=== PATIENT | female | born 1985 | race Caucasian/White ===

== ENCOUNTER 2018-03-14 11:24 | Observation (INO) ==
[2018-03-14 12:16] LABS: Basophils % 0.1 %; Eosinophils # 0.1 K/mcL (0.0-0.6); Hematocrit 33.1 % (35.3-44.9); Hemoglobin 9.4 g/dL (11.5-15.4); Immature Granulocytes % 1.1 % (0-4); Lymphocytes # 1.7 K/mcL (0.6-4.6); Mean Corpuscular HGB Conc 28.4 g/dL (31.6-35.5); Mean Corpuscular Hemoglobin 23.2 pg (28.0-33.3); Mean Corpuscular Volume 81.5 fL (83.0-100.0); Mean Platelet Volume 11.2 fL (9.4-12.4); Monocytes # 0.6 K/mcL (0.0-1.3); Monocytes % 6.5 %; Neutrophils # 6.8 K/mcL (1.6-8.9); Nucleated Red Blood Cells 1.6 /100 WBC (0); Platelet Count 138 K/mcL (140-400); Red Blood Count 4.06 M/mcL (3.82-4.97); Red Cell Distribution Width 19.9 % (11.5-14.5); Segmented Neutrophils % 73.3 %
[2018-03-14 12:17] LABS: Anisocytosis 1+ (Not Present); Hypochromasia Present (Not Present); Platelet Estimate Normal (Normal)
[2018-03-14 12:38] LABS: Alanine Aminotransferase 17 Units/L (7-52); Aspartate Amino Transferase 25 Units/L (13-39); BUN/Creatinine Ratio 11 (6-26); Blood Urea Nitrogen 5 mg/dL (6-20); Lactate Dehydrogenase 192 Units/L (140-271); Uric Acid 5.3 mg/dL (2.3-7.6); eGFR For Non-African Americans > 60 (> 60)
[2018-03-14 13:13] LABS: Amphetamine Screen,Urine Negative ng/mL (Cutoff=1000); Barbiturate Screen,Urine Negative ng/mL (Cutoff=200); Benzodiazepines Screen,Urine Negative ng/mL (Cutoff=200); Cannabinoid Screen,Urine Negative ng/mL (Cutoff = 50); Cocaine Screen,Urine Negative ng/mL (Cutoff= 300); Creatinine,Urine 38 mg/dL; Opiate Screen,Urine Negative ng/mL (Cutoff=300); Phencyclidine Screen,Urine Negative ng/mL (Cutoff=25); Protein/Creatinine Ratio,Urine 0.13 mg/mg (0.00-0.20)
--- NOTE | 2018-03-14 13:26 | Discharge Summary ---
Date of Encounter: 03/14/18 - Discharge Medications Home Medications: Ferrous Sulfate 324 mg PO DAILY 08/31/15 [History] Vit Calc,Iron,Folic [ Vitamins] 1 tab PO DAILY 08/31/15 [ History] Vitamin C 1 tab PO DAILY 03/14/18 [History] Allergies/Adverse Reactions: 3 Allergy/AdvReac Type Severity Reaction Status Date / Time No Known Allergies Allergy Verified 08/31/15 12:59 Data Procedures and tests throughout hospitalization: Laboratory Tests 03/14/18 03/14/18 03/14/18 11:36 11:37 11:37 WBC 9.3 RBC 4.06 Hgb 9.4 L Hct 33.1 L MCV 81.5 L MCH 23.2 L MCHC 28.4 L RDW 19.9 H Plt Count 138 L MPV 11.2 Immature Gran % 1.1 Seg Neutrophils % 73.3 Lymphocytes % 18.0 Monocytes % 6.5 Eosinophils % 1.0 Basophils % 0.1 Neutrophils # 6.8 Lymphocytes # 1.7 Monocytes # 0.6 Eosinophils # 0.1 Basophils # 0.0 Nucleated RBCs/100 WBC 1.6 H Platelet Estimate Normal Hypochromasia Present A Anisocytosis 1+ A BUN 5 L Creatinine 0.44 L Est GFR ( Amer) > 60 Est GFR (Non-Af Amer) > 60 BUN/Creatinine Ratio 11 Uric Acid 5.3 AST 25 ALT 17 Lactate Dehydrogenase 192 Urine Creatinine 38 Protein/Creatinin Ratio 0.13 Urine Total Protein 5 Urine Opiates Screen Negative Ur Barbiturates Screen Negative Ur Phencyclidine Scrn Negative Ur Amphetamines Screen Negative U Benzodiazepines Scrn Negative Urine Cocaine Screen Negative U Marijuana (THC) Screen Negative Ur Drug Screen Interp See Below Labs on day of discharge: Labs from last 24 hours 03/14/18 03/14/18 03/14/18 11:37 11:37 11:36 WBC 9.3 RBC 4.06 Hgb 9.4 L Hct 33.1 L MCV 81.5 L MCH 23.2 L MCHC 28.4 L RDW 19.9 H Plt Count 138 L MPV 11.2 Immature Gran % 1.1 Seg Neutrophils % 73.3 Lymphocytes % 18.0 Monocytes % 6.5 Eosinophils % 1.0 Basophils % 0.1 Neutrophils # 6.8 Lymphocytes # 1.7 Monocytes # 0.6 Eosinophils # 0.1 Basophils # 0.0 Nucleated RBCs/100 WBC 1.6 H Platelet Estimate Normal Hypochromasia Present A Anisocytosis 1+ A BUN 5 L Creatinine 0.44 L Est GFR ( Amer) > 60 Est GFR (Non-Af Amer) > 60 BUN/Creatinine Ratio 11 Uric Acid 5.3 AST 25 ALT 17 Lactate Dehydrogenase 192 Urine Creatinine 38 Protein/Creatinin Ratio 0.13 Urine Total Protein 5 Urine Opiates Screen Negative Ur Barbiturates Screen Negative Ur Phencyclidine Scrn Negative Ur Amphetamines Screen Negative U Benzodiazepines Scrn Negative Urine Cocaine Screen Negative U Marijuana (THC) Screen Negative Ur Drug Screen Interp See Below Date of admission: 03/14/18 11:22 Primary care physician: Seth Ascencio MD - Discharge Instructions Follow Up With: Seth Ascencio MD [Primary Care Provider] - Hospital Course [employer] Time Attestation: Total time spent providing and/or coordinating discharge services: Exam - Constitutional Vitals: 110s/60s Nontachycardic VSS, HDS General appearance IM: A&O X 0 Exam: General appearance: No diffuse swelling appreciated Abdomen: soft, nonTTP, no RUQP Extremities: Upper and lower extremities without significant edema - VTE Reasons for not Prescribing Prophylaxis: Treatment not Indicated - Low risk for VTE
--- NOTE | 2018-03-14 13:29 | OB/GYN History & Physical ---
Date of Encounter: 03/14/18 Time of Encounter: 13:30 Assessment and Plan (1) Preeclampsia Current visit: Yes Status: Acute 32yo at 36+0wks GA who presents for r/o PReE, patient was ruled out 1. R/o PReE - normotensive on serial BPs - denies si/sx of PReE including: HELTON/CP/SOB/blurry vision/RUQP - PReE labs ordered: KRYSTEN, UPC 0.13 - discussed si/sx of PreE, patient does not meet criteria for gHTN - will have patient f/u with Dr. Giles as scheduled Monday, 03/19 2. Concern for gestational thrombocytopenia - PLT 138 today, would recommend repeat on Monday to follow trend - recommendation for patient to continue ferrous sulfate TID with Hgb 9.3 toda - plan to repeat CBC at next PNV 3. FWB - reports good FM - RNST for GA - S = D 4. MWB - normotensive - VSS, HDS - UTD PNC with Dr. Giles DIspo: Patient discharged to home with PreE precaution(S). GIven PTL precaution(s). Scheduled to see Dr. Giles on Monday, March 19 for ROB. VIVEK MD Qualifiers: Trimester: third trimester Qualified Code(s): O14.93 - Unspecified pre- eclampsia, third trimester History of Present Illness Chief complaint: R/o PreE HPI: Ms. Cabello is a 32 year old female at 36+0wks GA who presents from office for r/o PReE. Denies HELTON/CP/SOB. Elevated BPs in office, increased swelling in lower extremities. Otherwise patient has had an uncomplicated . Reports excellent movement. Denies VB/LOF/contraction(s). Hx of one prior pLTCS at term. Past Med Surg Social Fam HX - Past Medical History Medical history: no medical history Psychiatric history: no psych history - Past Surgical History Surgical History: , other Additional surgical history: foot surgery, in 2016 - Social History Smoking Status: Never smoker Smokeless Tobacco Status: No Alcohol use: none Drug use: none - Family History Mother Adopted: No Living Status: Still Living Hx Family Cardiac Disorders: Yes (hypertension) Hx Family Respiratory Disorders: No Hx Family Cancer: No Hx Family GI Disorders: No Hx Family Endocrine Disorder: No Hx Family Neuromuscular Disorders: No Hx Family Neurologic Disorders: No Hx Family HEENT Disorders: No Hx Family Autoimmune Disorders: No Obstetrical History - Pregnancies : 2 Medications and Allergies Ferrous Sulfate 324 mg PO DAILY 08/31/15 [History] Vit Calc,Iron,Folic [ Vitamins] 1 tab PO DAILY 08/31/15 [ History] Vitamin C 1 tab PO DAILY 03/14/18 [History] 3 Allergy/AdvReac Type Severity Reaction Status Date / Time No Known Allergies Allergy Verified 08/31/15 12:59 Review of System OB - Constitutional Constitutional ROS IM: as per HPI - Gastrointestinal Gastrointestinal: as per HPI - Genitourinary Genitourinary: as per HPI Exam - Vital Signs Vital signs: 110s/60s Normotensive, HDS Afebrile, VSS - Constitutional Constitutional: well developed - Abdomen Abdomen: Present: bowel sounds normal, gravid, non tender - Extremities Extremities exam: radial pulses palpable and symmetrical Deep Tendon Reflex Grade: 2+ Normal Results Result Diagrams: 03/14/18 11:37 03/14/18 11:37 Abnormal lab results Hgb 9.4 g/dL (11.5-15.4) L 03/14/18 11:37 Hct 33.1 % (35.3-44.9) L 03/14/18 11:37 MCV 81.5 fL (83.0-100.0) L 03/14/18 11:37 MCH 23.2 pg (28.0-33.3) L 03/14/18 11:37 MCHC 28.4 g/dL (31.6-35.5) L 03/14/18 11:37 RDW 19.9 % (11.5-14.5) H 03/14/18 11:37 Plt Count 138 K/mcL (140-400) L 03/14/18 11:37 Nucleated RBCs/100 WBC 1.6 /100 WBC (0) H 03/14/18 11:37 Hypochromasia Present (Not Present) A 03/14/18 11:37 Anisocytosis 1+ (Not Present) A 03/14/18 11:37 BUN 5 mg/dL (6-20) L 03/14/18 11:37 Creatinine 0.44 mg/dL (0.60-1.20) L 03/14/18 11:37 All other labs normal. - VTE Reasons for not Prescribing Prophylaxis: Treatment not Indicated - Low risk for VTE
== END 2018-03-14 13:36 | disposition home or self-care (01) ==
LOC: 1NENULAB
PROVIDERS: ADMIT Registered Nurse; ATTEND Registered Nurse

== ENCOUNTER 2018-04-06 06:07 | Inpatient (IN) ==
[2018-04-06] MEDS ORDERED: Ringers Solution, Lactated 1,000 ML ONE ×2 (06:08→20:45)
[2018-04-06] MEDS ORDERED: Famotidine 20 MG/2 ML VIAL IVP ONE (06:16)
[2018-04-06] MEDS ORDERED: CeFAZolin Syr 3,000MG/30 ML 3,000 MG/30 ML SYRINGE IVPB ONE (06:16)
[2018-04-06] MEDS ORDERED: Ringers Solution, Lactated 1,000 ML IVC ONE (06:16)
[2018-04-06] MEDS ORDERED: Metoclopramide 10 MG/2 ML VIAL IVP ONE (06:16)
[2018-04-06 06:49] LABS: Nucleated Red Blood Cells 1.6 /100 WBC (0); Segmented Neutrophils % 69.7 %
[2018-04-06 06:50] LABS: Basophils % 0.2 %; Eosinophils # 0.1 K/mcL (0.0-0.6); Eosinophils % 0.7 %; Hematocrit 33.8 % (35.3-44.9); Hemoglobin 9.8 g/dL (11.5-15.4); Immature Granulocytes % 0.9 % (0-4); Lymphocytes # 2.3 K/mcL (0.6-4.6); Lymphocytes % 22.5 %; Mean Corpuscular Hemoglobin 23.3 pg (28.0-33.3); Mean Corpuscular Volume 80.5 fL (83.0-100.0); Monocytes # 0.6 K/mcL (0.0-1.3); Platelet Count 152 K/mcL (140-400); Red Cell Distribution Width 21.4 % (11.5-14.5)
[2018-04-06 07:11] LABS: Anisocytosis 1+ (Not Present); Hypochromasia Present (Not Present); Platelet Estimate Normal (Normal)
[2018-04-06] MEDS ORDERED: *HR* Morphine Sulfate/PF 10 MG/10 ML AMPUL ONE (07:14)
[2018-04-06] MEDS ORDERED: *HR* FentaNYL (PF) 100 MCG/2 ML VIAL ONE (07:14)
--- NOTE | 2018-04-06 07:30 | Anesthesia Evaluation PreOp ---
Date of Encounter: 04/06/18 Time of Encounter: 07:28 - Past History Planned Operation: c section Cardiac History: Denies any Significant Hx Pulmonary History: Denies Any Significant HX HAND SHAKER History: Denies Any Significant HX Other Medical History: GERD Anesthesia History: Past Anesthesia (c/s) : Yes Test: Positive Alcohol Use: none Drug use: none Medications and Allergies Ferrous Sulfate 324 mg PO BID 08/31/15 [History] Vit Calc,Iron,Folic [ Vitamins] 1 tab PO DAILY 08/31/15 [History] Ascorbic Acid [Vitamin C] 500 mg PO DAILY 03/16/18 [History] Allergy/AdvReac Type Severity Reaction Status Date / Time No Known Allergies Allergy Verified 04/06/18 06:11 - Meds/Allergy Pre-op Review Medications Reviewed: Yes Allergies Reviewed: Yes Beta Blockers on Current Med List: No Anesthesia Results - Labs 04/06/18 06:16 Anesthesia Exam see nsg note Height: 1.6 Weight: 110 NPO (# of Hours): 8 Pain Scale: 2 Pain Scale Used: Numeric (1 - 10) - HEENT Pupil (Motor): Pupils equal Mallampati: II Teeth: Normal Oral Opening: Greater than 3 - HAND SHAKER LOC: Oriented HAND SHAKER Motor: Normal RUE, Normal LUE, Normal RLE, Normal LLE, Normal Face HAND SHAKER Sensory: Normal: RUE, LUE, RLE, LLE, Face - Cardiac Rhythm: Regular Murmur: None - Pulmonary Breath Sounds: bilateral Clear Respiratory Effort: Symmetrical Anesthesia Assess/Plan ASA Score: 2 Level of consciousness: Cooperative Anesthetic Plan: Spinal Monitoring Plan: Standard Monitors Recovery Plan: PACU (risks discussed questions answered, consented)
[2018-04-06 07:32] LABS: Alanine Aminotransferase 15 Units/L (7-52); Aspartate Amino Transferase 29 Units/L (13-39); BUN/Creatinine Ratio 12 (6-26); Blood Urea Nitrogen 6 mg/dL (6-20); Lactate Dehydrogenase 199 Units/L (140-271); Uric Acid 6.5 mg/dL (2.3-7.6); eGFR For Non-African Americans > 60 (> 60)
[2018-04-06 07:32] LABS: Amphetamine Screen,Urine Negative ng/mL (Cutoff=1000); Barbiturate Screen,Urine Negative ng/mL (Cutoff=200); Benzodiazepines Screen,Urine Negative ng/mL (Cutoff=300); Cannabinoid Screen,Urine Negative ng/mL (Cutoff = 50); Cocaine Screen,Urine Negative ng/mL (Cutoff= 300); Opiate Screen,Urine Negative ng/mL (Cutoff=300); Phencyclidine Screen,Urine Negative ng/mL (Cutoff=25)
--- NOTE | 2018-04-06 07:45 | OB/GYN History & Physical ---
Date of Encounter: 04/06/18 Time of Encounter: 07:46 Assessment and Plan (1) 39 weeks gestation of Current visit: Yes Status: Chronic (2) Previous section Current visit: Yes Status: Chronic (3) Benign gestational thrombocytopenia Current visit: No Status: Chronic Qualifiers: Trimester: third trimester Qualified Code(s): O99.113 - Other diseases of the blood and blood-forming organs and certain disorders involving the immune mechanism complicating , third trimester; D69.6 - Thrombocytopenia, unspecified (4) Anemia Current visit: Yes Status: Chronic Qualifiers: Anemia type: iron deficiency Iron deficiency anemia type: other iron deficiency Qualified Code(s): D50.8 - Other iron deficiency anemias History of Present Illness HPI: Ms. Cabello is a 32 year old female Patient is a 32-year-old 2 para 1 white female who is admitted for section. She has history of previous section she desires tubal sterilization. She has history of anemia has been evaluated during the . She denies contractions, spontaneous rupture membranes, and reports good movement. Past Med Surg Social Fam HX - Past Medical History Medical history: no medical history Psychiatric history: no psych history - Past Surgical History Surgical History: , other (Anemia) Additional surgical history: foot surgery, in 2016 - Social History Smoking Status: Never smoker Smokeless Tobacco Status: No Alcohol use: none Drug use: none - Family History Mother Adopted: No Family Member Ethnicity: Non- Living Status: Still Living Hx Family Cardiac Disorders: Yes (hyperlipidemia, hypertension) Hx Family Respiratory Disorders: No Hx Family Cancer: No Hx Family GI Disorders: No Hx Family Genitourinary Disorders: No Hx Family Endocrine Disorder: No Hx Family Musculoskeletal Disorders: No Hx Family Neuromuscular Disorders: No Hx Family Neurologic Disorders: No Hx Family HEENT Disorders: No Hx Family Autoimmune Disorders: No Hx Family Reproductive Disorders: No Hx Family Psychosocial Disorders: No Hx Family Medical Disorders: No Obstetrical History - Pregnancies : 2 Medications and Allergies Ferrous Sulfate 324 mg PO BID 08/31/15 [History] Vit Calc,Iron,Folic [ Vitamins] 1 tab PO DAILY 08/31/15 [History] Ascorbic Acid [Vitamin C] 500 mg PO DAILY 03/16/18 [History] Allergy/AdvReac Type Severity Reaction Status Date / Time No Known Allergies Allergy Verified 04/06/18 06:11 Review of System OB All systems PM: reviewed and no additional remarkable complaints except as stated - Genitourinary Genitourinary: amenorrhea - Menstruation Menstruation: amenorrhea Exam - Constitutional Constitutional: well developed, well nourished, no acute distress - HEENT HEENT: Normocephaly - Neck Neck exam: full ROM - Lungs Respiratory exam: CTAB - Cardiovascular Cardiovascular exam: RRR - Abdomen Abdomen: Present: gravid, non tender - Extremities Extremities exam: full ROM Deep Tendon Reflex Grade: 2+ Normal - Uterus Uterus exam: Present: enlarged Results Result Diagrams: 04/06/18 06:16 04/06/18 06:32 Abnormal lab results Hgb 9.8 g/dL (11.5-15.4) L 04/06/18 06:16 Hct 33.8 % (35.3-44.9) L 04/06/18 06:16 MCV 80.5 fL (83.0-100.0) L 04/06/18 06:16 MCH 23.3 pg (28.0-33.3) L 04/06/18 06:16 MCHC 29.0 g/dL (31.6-35.5) L 04/06/18 06:16 RDW 21.4 % (11.5-14.5) H 04/06/18 06:16 Nucleated RBCs/100 WBC 1.6 /100 WBC (0) H 04/06/18 06:16 Hypochromasia Present (Not Present) A 04/06/18 06:16 Anisocytosis 1+ (Not Present) A 04/06/18 06:16 Creatinine 0.52 mg/dL (0.60-1.20) L 04/06/18 06:32 All other labs normal. - Attending Attestation irma iglesias md facog
[2018-04-06] MEDS ORDERED: *HR* FentaNYL (PF) 100 MCG/2 ML VIAL IVP PRN (07:48)
[2018-04-06] MEDS ORDERED: *HR* OxyCODONE Immed Rel 5 MG TABLET PO PRN (07:48)
[2018-04-06] MEDS ORDERED: Acetaminophen IV 1,000 MG/100 ML INFUS..BTL IVPB ONE (07:48)
[2018-04-06] MEDS ORDERED: Ondansetron 4 MG/2 ML VIAL IVP PRN ×2 (07:48→11:48)
[2018-04-06] MEDS ORDERED: *HR* Meperidine 50 MG/ML SYRINGE IVP PRN (07:48)
--- NOTE | 2018-04-06 08:27 | Anesthesia Procedures ---
Date of Encounter: 04/06/18 Time of Encounter: 08:25 Procedures: Anesthesia - Epidural/Spinal Patient ID/Chart reviewed: Yes Patient examined: Yes OB Eval: Gestational age: 39 OB Eval: : 2 OB Eval: Hx Para: 1 OB Eval: Dilated at (cm): 2 OB Eval: Contractions: Non-stressed pattern Consent Obtained: Yes Supplemental Oxygen: Nasal Cannula Supplemental Oxygen Rate (L/min): 3 Site Prep: Aseptic Technique, Sterile prep and drape, 0.5% Chlorhexidine/Alcohol Patient position: upright Local Anesthetic: Lidocaine 1% Amount of Local Anesthetic used: 3 Interspace Used: L2-L3 Loss of Resistance (JAIRO): No Blood: No CSF: Yes Paresthesia: No Spinal Needle Gauge: 25 Spinal Dose: marcaine 12mg duramorph 2, fentanyl 10 mcg Procedure: eptic, isaias well, csf x4 quads, effective Vitals + FHT's: 100/78 65 16 fht 125
[2018-04-06] MEDS ORDERED: Lidocaine -MPF 2% 5 ML VIAL ONE (08:39)
[2018-04-06] MEDS ORDERED: Ketorolac 30 MG/ML VIAL ONE (08:39)
[2018-04-06] MEDS ORDERED: *HR* Oxytocin 10 UNIT/ML VIAL IM ONE (08:39)
[2018-04-06] MEDS ORDERED: *HR* Phenylephrine 10 MG/ML VIAL ONE (08:39)
[2018-04-06] MEDS ORDERED: Oxytocin 20 units/ LR 1000 mL 20 UNIT/1,000 ML BAG IVC ONE (09:43)
--- NOTE | 2018-04-06 09:46 | OB/GYN Procedure Note ---
Section - Date of procedure: 04/06/18 Preop diagnosis: desires repeat , desires sterilization Post-op diagnosis: same Procedure: repeat low transverse, bilateral tubal ligation Surgeon: Edinson Patricia Blood Loss: 300 Was there an assistant maintenance manager present: No Anesthesiologist: Roddy Sykes Anesthesia Type: Spinal section complications: none Disposition: PACU Specimens: Placenta, Right tube segment, Left tube segment - (s) Infant A Delivery Date: 04/06/18 Delivery Time: 08:32 Presentation: vertex Position: ANGUS Gender: Male Viability: Viable Pounds: 6 Ounces: 11 at 1 minute: 8 at 5 minutes: 9 Specimens collected: cord blood Placenta: complete extraction Cord: nuchal cord, nuchal reduced - Narrative Narrative: Patient was taken to the operating room. After satisfactory anesthesia was achieved patient placed in supine position Mac catheter inserted and prepped and draped in usual manner. After appropriate timeout was obtained, abdomen was entered through standard Maylard incision. The Bette retractor was placed. Peritoneum overlying the lower uterine segment was incised in U-shaped fashion. Uterine cavity was entered sharply extended laterally. Fluid was clear. With fundal pressure the infant was delivered. Infant suctioned on deliver the head. Nuchal cord was relieved head delivered the head. The umbilical cord was doubly clamped and cut and the was handed to nursery staff for further evaluation. Placenta was removed. Uterus closed with 0 Monocryl in a single layer. Attention then turned to the tubal. The fallopian tubes were bilaterally resected and sent to pathology for analysis. Pedicles were ligated using 2-0 chromic. After she inserts of hemostasis, the abdomen was closed standard fashion using 0 PDS on the fascia and 3-0 Monocryl in the skin. Sterile dressing was applied. Patient did well was taken to recovery in satisfactory condition. Counts were correct.
[2018-04-06] MEDS ORDERED: *HR* OxyCODONE/APAP 5/325 TABLET PO PRN (11:48)
[2018-04-06] MEDS ORDERED: Sennosides 8.6 MG TABLET PO PRN (11:48)
[2018-04-06] MEDS ORDERED: Metoclopramide 10 MG/2 ML VIAL IVP PRN (11:48)
[2018-04-06] MEDS ORDERED: Simethicone 80 MG TAB.CHEW PO PRN (11:48)
[2018-04-06] MEDS ORDERED: Rho Immune Globulin 1,500 UNIT SYRINGE IM ONE (11:48)
[2018-04-06] MEDS ORDERED: Oxytocin 20 units/ LR 1000 mL 20 UNIT/1,000 ML BAG IVC SCH (11:48)
--- NOTE | 2018-04-06 12:31 | Anesthesia Evaluation Post Op ---
Date of Encounter: 04/06/18 Time of Encounter: 12:30 - Vital Signs Vital Signs: Vital Signs/O2 Sat, Most Current Temp Pulse Resp BP Pulse Ox 98 F 63 16 118/61 96 04/06/18 12:00 04/06/18 12:00 04/06/18 12:00 04/06/18 12:00 04/06/18 12:00 - Lungs Lungs: Clear Ascult./Percussion - Airway Airway: Non-obstructed - Cardiovascular Regular Rate - Mental Status Mental Status: Alert & Oriented, Answers Appropriately - Pain Pain Scale: 2 Pain Scale used: Numeric (1 - 10) - Nausea Vomiting Nausea Vomiting: Not Present - Hydration Hydration: NPO Notes: 04/06/18 12:30 itching - Discharge PostOp Status: Transfer Patient to floor (awake, alert, no pain, VSS, no anesthetic complications)
[2018-04-06] MEDS: Ibuprofen 600 MG TABLET PO PRN (21:01)
[2018-04-07] MEDS: Ibuprofen 600 MG TABLET PO PRN ×3 (05:18→19:11)
[2018-04-07 07:09] LABS: Basophils % 0.4 %; Eosinophils % 0.4 %; Hematocrit 33.2 % (35.3-44.9); Hemoglobin 9.6 g/dL (11.5-15.4); Immature Granulocytes % 0.7 % (0-4); Immature Platelets 9.3 % (1.1-6.1); Lymphocytes # 1.6 K/mcL (0.6-4.6); Lymphocytes % 16.3 %; Mean Corpuscular HGB Conc 28.9 g/dL (31.6-35.5); Mean Corpuscular Hemoglobin 23.6 pg (28.0-33.3); Mean Corpuscular Volume 81.8 fL (83.0-100.0); Mean Platelet Volume 11.6 fL (9.4-12.4); Monocytes # 0.5 K/mcL (0.0-1.3); Monocytes % 5.3 %; Platelet Count 158 K/mcL (140-400); Red Blood Count 4.06 M/mcL (3.82-4.97); Red Cell Distribution Width 21.9 % (11.5-14.5); Segmented Neutrophils % 76.9 %
[2018-04-07 07:11] LABS: Neutrophils # 7.4 K/mcL (1.6-8.9)
[2018-04-07] MEDS: Prenatal Vit/FA 1 EACH TABLET PO SCH (07:43)
[2018-04-07] MEDS: Ascorbic Acid 500 MG TABLET PO SCH (07:43)
[2018-04-07] MEDS ORDERED: NON-FORMULARY MEDICATION 1 EACH EACH (Prenatal Vit Calc,Iron,Folic [Prenatal Vitamins] 1 T PO SCH (09:00)
--- NOTE | 2018-04-07 12:26 | OB/GYN Progress Note ---
Date of Encounter: 04/07/18 Time of Encounter: 12:23 - Assessment and Plan (1) anemia Current Visit: Yes Status: Acute Continue iron as scheduled. Patient is asymptomatic vitals are stable. Plan to send home on iron when discharged. (2) Status post section Current Visit: No Status: Acute Meeting day 1 milestones. Patient emulating in room without difficulty. Pa ssing flatus, tolerating regular diet. Anticipate discharge home tomorrow. Subjective - Subjective Principal diagnosis: Status post section Interval history: Patient is doing well today. She is up emulating in the room. States her pain is well-controlled with Motrin. She has not requested Percocet at this time but patient was encouraged to use that if needed. She is voiding normally has not had a bowel movement, is tolerating regular diet. Patient reports: appetite normal, voiding normally, pain well controlled, ambulating normally : doing well, bottle feeding Objective - Vital Signs Latest vital signs: Vital Signs Temp Pulse Resp BP Pulse Ox 04/07/18 07:47 98.1 F 88 16 124/78 95 04/07/18 05:51 98.5 F 79 16 114/76 97 04/07/18 00:33 98.3 F 63 16 106/56 96 04/06/18 21:00 98.1 F 69 16 112/63 95 04/06/18 15:05 16 04/06/18 15:00 98.1 F 62 16 106/42 98 04/06/18 14:00 97.8 F 56 16 115/57 98 04/06/18 13:00 97.9 F 70 16 114/56 96 04/06/18 12:35 97.9 F 88 16 132/62 98 04/06/18 12:30 97.9 F 88 16 132/62 98 Intake and Output 04/06/18 04/07/18 04/07/18 23:59 07:59 15:59 Intake Total 360 / 360 300 / 300 360 / 360 Output Total 750 / 750 2200 / 2200 300 / 300 Balance -390 / -390 -1900 / -1900 60 / 60 Intake: Oral 360 / 360 300 / 300 360 / 360 Output: Urine 1000 / 1000 300 / 300 Catheter 750 / 750 1200 / 1200 Other: Meal Dinner Breakfast Percent of Meal Consumed 50% 100% Stool Characteristics Normal for Patient Weight 108.272 kg Patient Weight 04/07/18 23:59 Weight 108.272 kg - Exam Lungs: bilateral: normal Chest: Normal S1, Normal S2 Extremities: Present: normal Abdomen: Present: normal appearance, soft Incision: Present: dressed (RADHA dressing) Uterus: Present: normal, firm Fundal Height: 0 (@u) - Labs Labs: Laboratory Results - last 24 hr 04/07/18 07:00 WBC 9.6 RBC 4.06 Hgb 9.6 L Hct 33.2 L MCV 81.8 L MCH 23.6 L MCHC 28.9 L RDW 21.9 H Plt Count 158 MPV 11.6 Immature Gran % 0.7 Seg Neutrophils % 76.9 Lymphocytes % 16.3 Monocytes % 5.3 Eosinophils % 0.4 Basophils % 0.4 Neutrophils # 7.4 Lymphocytes # 1.6 Monocytes # 0.5 Eosinophils # 0.0 Basophils # 0.0 Nucleated RBCs/100 WBC 1.0 H Immature Plt Fraction 9.3 H
[2018-04-08] MEDS: Ibuprofen 600 MG TABLET PO PRN ×2 (01:19→07:41)
[2018-04-08] MEDS: Prenatal Vit/FA 1 EACH TABLET PO SCH (07:40)
[2018-04-08] MEDS: Ascorbic Acid 500 MG TABLET PO SCH (07:41)
[2018-04-08 08:01] VITALS: BP 129/85
--- NOTE | 2018-04-08 08:47 | Discharge Summary ---
Date of Encounter: 04/08/18 Time of Encounter: 08:45 - Discharge Diagnosis (1) Status post section Priority: Primary Status: Acute - Discharge Medications Prescriptions: Ibuprofen [Motrin] 600 mg PO Q6HR PRN #30 tablet PRN Reason: Cramping OxyCODONE/APAP 5/325 [Percocet 5/325 MG] 1 each PO Q6HR PRN 5 Days #20 tablet PRN Reason: Moderate pain 4-6 Home Medications: Ferrous Sulfate 324 mg PO BID 08/31/15 [History] Vit Calc,Iron,Folic [ Vitamins] 1 tab PO DAILY 08/31/15 [History] Ascorbic Acid [Vitamin C] 500 mg PO DAILY 03/16/18 [History] Ibuprofen [Motrin] 600 mg PO Q6HR PRN #30 tablet 04/08/18 [Rx] OxyCODONE/APAP 5/325 [Percocet 5/325 MG] 1 each PO Q6HR PRN 5 Days #20 tablet 04/08/18 [Rx] Allergies/Adverse Reactions: Allergy/AdvReac Type Severity Reaction Status Date / Time No Known Allergies Allergy Verified 04/06/18 06:11 Data Procedures and tests throughout hospitalization: Laboratory Tests 04/06/18 04/06/18 04/06/18 06:16 06:16 06:24 WBC 10.0 RBC 4.20 Hgb 9.8 L Hct 33.8 L MCV 80.5 L MCH 23.3 L MCHC 29.0 L RDW 21.4 H Plt Count 152 MPV 12.0 Immature Gran % 0.9 Seg Neutrophils % 69.7 Lymphocytes % 22.5 Monocytes % 6.0 Eosinophils % 0.7 Basophils % 0.2 Neutrophils # 7.0 Lymphocytes # 2.3 Monocytes # 0.6 Eosinophils # 0.1 Basophils # 0.0 Nucleated RBCs/100 WBC 1.6 H Platelet Estimate Normal Immature Plt Fraction Hypochromasia Present A Anisocytosis 1+ A BUN Creatinine Est GFR ( Amer) Est GFR (Non-Af Amer) BUN/Creatinine Ratio Uric Acid AST ALT Lactate Dehydrogenase Urine Opiates Screen Negative Ur Barbiturates Screen Negative Ur Phencyclidine Scrn Negative Ur Amphetamines Screen Negative U Benzodiazepines Scrn Negative Urine Cocaine Screen Negative U Marijuana (THC) Screen Negative Ur Drug Screen Interp See Below Blood Type B POSITIVE Antibody Screen NEGATIVE Crossmatch See Detail 04/06/18 04/07/18 06:32 07:00 WBC 9.6 RBC 4.06 Hgb 9.6 L Hct 33.2 L MCV 81.8 L MCH 23.6 L MCHC 28.9 L RDW 21.9 H Plt Count 158 MPV 11.6 Immature Gran % 0.7 Seg Neutrophils % 76.9 Lymphocytes % 16.3 Monocytes % 5.3 Eosinophils % 0.4 Basophils % 0.4 Neutrophils # 7.4 Lymphocytes # 1.6 Monocytes # 0.5 Eosinophils # 0.0 Basophils # 0.0 Nucleated RBCs/100 WBC 1.0 H Platelet Estimate Immature Plt Fraction 9.3 H Hypochromasia Anisocytosis BUN 6 Creatinine 0.52 L Est GFR ( Amer) > 60 Est GFR (Non-Af Amer) > 60 BUN/Creatinine Ratio 12 Uric Acid 6.5 AST 29 ALT 15 Lactate Dehydrogenase 199 Urine Opiates Screen Ur Barbiturates Screen Ur Phencyclidine Scrn Ur Amphetamines Screen U Benzodiazepines Scrn Urine Cocaine Screen U Marijuana (THC) Screen Ur Drug Screen Interp Blood Type Antibody Screen Crossmatch Date of admission: 04/06/18 06:07 Primary care physician: Seth Ascencio MD Discharging clinician: Woody Howard Anticipated date of discharge: 04/08/18 - Patient Status Disposition: Home, Self-Care Condition: Good Functional capacity at discharge: independent ambulation Overall status at discharge: patient is progressing back to baseline - Discharge Instructions Follow Up With: Seth Ascencio MD [Primary Care Provider] - Edinson Giles MD [Partnered Physician] - - Diet and Activity Activity: increase activity as tolerated Diet: advance to your usual diet Hospital Course Reason for admission: section Delivery: section Episiotomy: none Laceration: none Other procedures: tubal ligation complications: none Discharge diagnosis: IUP at term delivered baby: male Hospital course: Patient is a 32-year-old female who presented for repeat low transverse section with bilateral tubal ligation. Patient underwent procedure without any complications hospital course was unremarkable patient's diet was advanced by hospital day #1 she was ambulating tolerating diet pain well-controlled patient continue doing well on day #1 by day #2 patient was ready be discharged home patient's only taking ibuprofen for pain did recommend sending her home with a few Percocets in case she is uncomfortable at home she will be discharged home with Percocet 5 mg #20 one every 6 as needed for pain for 5 days, Motrin 600 mg 1 every 6 as needed for cramping and already on iron sulfate which she will continue, patient's condition at time of discharge was stable Time Attestation: Total time spent providing and/or coordinating discharge services: - VTE Documentation of Mechanical Device: Intermittent pneumatic compression device Exam - Constitutional Vitals: Temp Pulse Resp BP Pulse Ox 97.9 F 84 16 129/85 96 04/08/18 07:59 04/08/18 07:59 04/08/18 07:59 04/08/18 07:59 04/08/18 07:59 General appearance IM: A&O X 3 - Respiratory Respiratory exam: Present: CTAB - Cardiovascular Cardiovascular exam IM: Present: RRR - GI/Abdominal GI/Abdominal exam IM: normal bowel sounds Incision: normal, dry, intact - Rectal Rectal exam: deferred - Uterine Tone: Firm Uterus Position: At Umbilicus
== END 2018-04-08 10:15 | disposition home or self-care (01) | DRG 784 ==
LOC: 1NENULAB 06:07 → 1NENUOBS 11:47
PROVIDERS: ADMIT Obstetrics & Gynecology; ATTEND Obstetrics & Gynecology